=== PATIENT | male | born 1995 | race Caucasian/White ===

== ENCOUNTER 2017-04-08 12:20 | Emergency (ER) | payer BC ==
[2017-04-08 12:39] VITALS: BP 122/76; PULSE 88; RESP 20; TEMP 100.6
[2017-04-08] MEDS ORDERED: IBUPROFEN 600 MG TAB PO STA (12:46)
[2017-04-08] MEDS ORDERED: ACETAMINOPHEN TAB 500 MG TAB PO STA (12:46)
--- NOTE | 2017-04-08 12:49 | ED ---
ENT HPI - General Chief complaint: ENT Stated complaint: Sore Throat/Ear Ache Time Seen by Provider: 04/08/17 12:41 Source: patient, RN notes reviewed Mode of arrival: ambulatory Limitations: no limitations - History of Present Illness Initial comments: 22-year-old male presents to the emergency Department chief complaint of bilateral ear pain and sore throat. Patient states she's been sick for about 4 days. Patient states he has felt hot and cold with this as well. Patient has a significant health concerns. Patient states took Motrin for him. Patient denies any nausea or vomiting or any difficulty breathing. Patient states it's like he is swallowing razor blades. Patient states he was concerned due to his symptoms he thought that he should be evaluated. Patient denies any recent shortness of breath, chest pain, back pain, abdominal pain, nausea vomiting, numbness or tingling, dysuria or hematuria, constipation or diarrhea, headaches or visual changes, or any other current symptoms. - Related Data Previous Rx's Medication Instructions Recorded Azithromycin [Zithromax] 250 mg PO DIRECTED #6 tab 04/08/17 Ibuprofen [Motrin] 600 mg PO Q6HR #20 tab 04/08/17 Allergies Allergy/AdvReac Type Severity Reaction Status Date / Time amoxicillin [From Augmentin] Allergy Vomiting Verified 04/08/17 12:39 clavulanic acid Allergy Vomiting Verified 04/08/17 12:39 [From Augmentin] Review of Systems ROS Statement: Those systems with pertinent positive or pertinent negative responses have been documented in the HPI. ROS Other: All systems not noted in ROS Statement are negative. Past Medical History Past Medical History: No Reported History History of Any Multi-Drug Resistant Organisms: None Reported Past Surgical History: No Surgical Hx Reported Past Psychological History: No Psychological Hx Reported Smoking Status: Current every day smoker Past Alcohol Use History: Occasional Past Drug Use History: None Reported General Exam - General Exam Comments Initial Comments: General exam: Alert, active, comfortable in no apparent distress Head: Normocephalic Eyes: Normal reaction of pupils, equal size, normal range of extraocular motion Ears: normal external ear canals, erythematous tympanic membranes with normal cone of light Nose: clear with pink turbinates Throat: Erythema with no exudates with normal sized tonsils Neck: no masses, no nuchal rigidity Chest: no chest wall deformity Lungs: equal air entry with no crackles or wheeze CVS: S1 and S2 normal with no audible mumurs, regular rhythm Abdomen: no hepatosplenomegaly, normal bowel sounds, no guarding or rigidity Spine: no scoliosis or deformity Skin: no rashes Neurological: No focal deficits, tone is normal in all 4 extremities Limitations: no limitations Course Vital Signs 04/08/17 12:37 Temperature 100.6 F H Pulse Rate 88 Respiratory 20 Rate Blood Pressure 122/76 O2 Sat by Pulse 99 Oximetry Medical Decision Making - Medical Decision Making 22-year-old male presents with history of bilateral otitis media with pharyngitis. This and we will treat the patient with antibiotics. We discussed follow-up return parameters all patient's questions. He stated that he understood and agreed with plan. This and will be discharged home. Disposition Clinical Impression: Bilateral otitis media, Acute pharyngitis Disposition: HOME SELF-CARE Condition: Stable Instructions: Otitis Media (ED) Additional Instructions: Please use medication as discussed. Please follow up with family doctor if symptoms have not improved over the next two days. Please return to the emergency room if your symptoms increase or worsen or for any other concerns. Prescriptions: Azithromycin [Zithromax] 250 mg PO DIRECTED #6 tab Ibuprofen [Motrin] 600 mg PO Q6HR #20 tab Referrals: Kriss Barber MD [STAFF PHYSICIAN] - 1-2 days Time of Disposition: 12:49
== END 2017-04-08 12:54 | disposition home or self-care (01) ==
LOC: EC 12:20
DX: H66.93 Otitis media, unspecified, bilateral (principal); F17.200 Nicotine dependence, unspecified, uncomplicated; Z88.0 Allergy status to penicillin; Z88.8 Allergy status to other drugs, medicaments and biological substances
CPT/HCPCS: 99282

== ENCOUNTER 2018-06-19 14:51 | Emergency (ER) | payer BC ==
[2018-06-19 15:06] VITALS: BP 127/66; PULSE 67; RESP 18; TEMP 98.6
--- NOTE | 2018-06-19 15:16 | ED ---
Abdominal Pain HPI - General Chief Complaint: Abdominal Pain Stated Complaint: Back pain Time Seen by Provider: 06/19/18 15:07 Source: patient, RN notes reviewed Mode of arrival: ambulatory Limitations: no limitations - History of Present Illness Initial Comments: This is a 23-year-old male who presents to the emergency department with chief complaint of right flank pain. Patient states that at 1 PM today he had sudden onset of sharp, stabbing pain in the right flank. States that the pain radiates to his groin and bellybutton. He states that the pain is intermittent , increasing in severity and then going away. He states that he has had kidney stones in the past and that this feels the same. He denies any abdominal pain, nausea or vomiting, diarrhea or constipation, fevers or chills. He states that while providing a urine sample here in the emergency department he did notice a stone in the bottom of the sample cup. - Related Data Home Medications Medication Instructions Recorded Confirmed No Known Home Medications 08/05/17 08/05/17 Allergies Allergy/AdvReac Type Severity Reaction Status Date / Time amoxicillin [From Augmentin] AdvReac Vomiting Verified 08/05/17 14:18 clavulanic acid AdvReac Vomiting Verified 08/05/17 14:18 [From Augmentin] Review of Systems ROS Statement: Those systems with pertinent positive or pertinent negative responses have been documented in the HPI. ROS Other: All systems not noted in ROS Statement are negative. Past Medical History Past Medical History: No Reported History Additional Past Medical History / Comment(s): heart burn History of Any Multi-Drug Resistant Organisms: None Reported Past Surgical History: No Surgical Hx Reported Past Psychological History: Depression Smoking Status: Current every day smoker Past Alcohol Use History: Occasional Past Drug Use History: None Reported General Exam - General Exam Comments Initial Comments: General: Awake and alert, well-developed; in no apparent distress. Patient's urine sample is at bedside, there is a small stone noted at the bottom of the sample cup. HEENT: Head atraumatic, normocephalic. Pupils are equal, round and reactive to light. Extraocular movements intact. Oropharynx moist without erythema or exudate. Neck: Supple. Normal ROM. Cardiovascular: Regular rate and rhythm. No murmurs, rubs or gallops. Chest symmetrical. Respiratory: Lungs clear to auscultation bilaterally. No wheezes, rales or rhonchi. Normal respiratory effort with no use of accessory muscles. Abdomen: Soft, non-tender, non-distended. No rigidity, rebound or guarding. Normal bowel sounds in all 4 quadrants. No CVA tenderness bilaterally. Musculoskeletal: Normal ROM, no tenderness bilateral upper and lower extremities. Ambulating normally. Skin: [place], warm and dry without rashes or lesions. Neurological: Alert and oriented x3. CN II-XII grossly intact. Speech is fluent and answers are appropriate. No focal neuro deficits. Psychiatric: Normal mood and affect. No overt signs of depression or anxiety noted. Limitations: no limitations Course Vital Signs 06/19/18 15:03 Temperature 98.6 F Pulse Rate 67 Respiratory 18 Rate Blood Pressure 127/66 O2 Sat by Pulse 98 Oximetry Medical Decision Making - Medical Decision Making This is a 23-year-old male who presents to the emergency department with chief complaint of right flank pain. Patient reports a history of kidney stones. He reports acute onset of colicky right flank pain. While in the emergency department, a urine sample was collected. A small calculus was noted in the bottom of the urine sample. UA does reveal large blood and >182 red blood cells. X-ray KUB revealed evidence for a recently passed calculus and a new non -obstructing calculus within the right kidney. On reevaluation, patient states that his pain has completely improved. The passed kidney stone in the urine sample cup can account for patient's acute pain, dissipation of pain, hematuria and xr kub findings. Recommend following up with his primary care provider. Educated patient that he may experience pain again if the other kidney stone is passed. Vital signs have been stable and he is in no acute distress. He will be discharged home at this time. He is in agreement and voices understanding. All questions were answered. - Lab Data Lab Results 06/19/18 Range/Units 15:11 Urine Color Yellow Urine Appearance Clear (Clear) Urine pH 7.0 (5.0-8.0) Ur Specific [place] 1.020 (1.001-1.035) Urine Protein Trace H (Negative) Urine Glucose (UA) Negative (Negative) Urine Ketones Negative (Negative) Urine Blood Large H (Negative) Urine Nitrite Negative (Negative) Urine Bilirubin Negative (Negative) Urine Urobilinogen 2.0 (<2.0) mg/dL Ur Leukocyte Esterase Negative (Negative) Urine RBC >182 H (0-5) /hpf Urine WBC 1 (0-5) /hpf Urine Bacteria Rare H (None) /hpf Urine Mucus Rare H (None) /hpf - Radiology Data Radiology results: report reviewed X-ray KUB impression: Suspect passage of prior visualized 1-2 mm calculus on prior CT upper pole level right kidney into ureter given patient's symptoms. Possible new nonobstructing 1-2 mm calculus lower pole level right kidney noted. Disposition Clinical Impression: Nephrolithiasis Disposition: HOME SELF-CARE Condition: Good Instructions: Kidney Stones (ED) Additional Instructions: Please follow up with primary care provider within 1-2 days. Return to emergency department if symptoms should worsen or any concerns arise. Is patient prescribed a controlled substance at d/c from ED?: No Referrals: Harinder Jane MD [Primary Care Provider] - 1-2 days Time of Disposition: 15:56
--- NOTE | 2018-06-19 15:37 | XR ---
EXAMINATION TYPE: XR KUB DATE OF EXAM: 06/19/2018 3:31 PM CLINICAL HISTORY: History of kidney stones with right posterior flank pain TECHNIQUE: Two Upright KUB images of the abdomen are obtained. COMPARISON: CT abdomen and pelvis August 05, 2017. FINDINGS: There is punctate density possible new 1 to 2 mm calculus lower pole level right kidney. No definitive left-sided nephrolithiasis. There is overall nonobstructive bowel gas pattern. There is levoconvex scoliotic curvature positionin g centered in the mid lumbar spine. Spina bifida defect S1 level is present. There is left pelvic phl ebolith redemonstrated. IMPRESSION: Suspect passage of prior visualized 1 to 2 mm calculus on prior CT upper pole level righ t kidney into ureter given patient's symptoms. Possible new nonobstructing 1 to 2 mm calculus lower p ole level right kidney noted.
[2018-06-19 15:50] LABS: Appearance,Urine Clear (Clear); Bacteria,Urine Rare /hpf; Bilirubin,Urine Negative (Negative); Blood,Urine Large (Negative); Color,Urine Yellow; Glucose,Urine (UA) Negative (Negative); Ketones,Urine Negative (Negative); Leukocyte Esterase,Urine Negative (Negative); Mucus,Urine Rare /hpf; Nitrite,Urine Negative (Negative); Protein,Urine Trace (Negative); RBC,Urine >182 /hpf (0-5); WBC,Urine 1 /hpf (0-5)
== END 2018-06-19 16:02 | disposition home or self-care (01) ==
LOC: EC 14:51
DX: N20.0 Calculus of kidney (principal); F17.200 Nicotine dependence, unspecified, uncomplicated; Z88.0 Allergy status to penicillin
CPT/HCPCS: 74018; 81001; 99284

== ENCOUNTER 2018-07-07 13:22 | Emergency (ER) | payer BC ==
[2018-07-07 13:37] VITALS: RESP 18; TEMP 98.2
[2018-07-07 15:19] LABS: Basophils % (A) 1 %; Eosinophils # (A) 0.1 k/uL (0-0.7); Eosinophils % (A) 2 %; HCT 44.5 % (39.0-53.0); HGB 14.9 gm/dL (13.0-17.5); Lymphocytes # (A) 2.1 k/uL (1.0-4.8); Lymphocytes % (A) 36 %; MCH 29.6 pg (25.0-35.0); MCHC 33.5 g/dL (31.0-37.0); MCV 88.2 fL (80.0-100.0); Mean Platelet Volume 7.2; Monocytes # (A) 0.3 k/uL (0-1.0); Monocytes % (A) 6 %; Neutrophils # (A) 3.2 k/uL (1.3-7.7); Neutrophils % (A) 55 %; Platelet Count 232 k/uL (150-450); RBC 5.04 m/uL (4.30-5.90); RDW 12.5 % (11.5-15.5); WBC 5.8 k/uL (3.8-10.6)
[2018-07-07 15:29] LABS: Appearance,Urine Clear (Clear); Bilirubin,Urine Negative (Negative); Blood,Urine Negative (Negative); Color,Urine Yellow; Glucose,Urine (UA) Negative (Negative); Ketones,Urine Negative (Negative); Leukocyte Esterase,Urine Small (Negative); Mucus,Urine Rare /hpf; Nitrite,Urine Negative (Negative); PH, Urine 7.5 (5.0-8.0); Protein,Urine Negative (Negative); RBC,Urine 1 /hpf (0-5); Specific Gravity,Urine 1.018 (1.001-1.035); Urobilinogen,Urine <2.0 mg/dL (<2.0); WBC,Urine 1 /hpf (0-5)
[2018-07-07 15:36] LABS: ALT 29 U/L (21-72); AST 22 U/L (17-59); Albumin 4.8 g/dL (3.5-5.0); Alkaline Phosphatase 52 U/L (38-126); Amylase 56 U/L (30-110); Anion Gap 10 mmol/L; Blood Urea Nitrogen 12 mg/dL (9-20); Calcium 9.9 mg/dL (8.4-10.2); Carbon Dioxide 27 mmol/L (22-30); Chloride 106 mmol/L (98-107); Glucose 91 mg/dL (74-99); Lipase 77 U/L (23-300); Potassium 4.2 mmol/L (3.5-5.1); Sodium 143 mmol/L (137-145); Total Bilirubin 0.6 mg/dL (0.2-1.3)
--- NOTE | 2018-07-07 16:10 | XR ---
EXAMINATION TYPE: XR KUB DATE OF EXAM: 07/07/2018 3:55 PM CLINICAL HISTORY: Right-sided abdominal pain with history of nephrolithiasis. TECHNIQUE: Single supine KUB image of the abdomen is obtained. COMPARISON: 06/19/2018. FINDINGS: Scattered gas is seen in non-distended small bowel loops. Gas and fecal material is seen in non-distended colon. There is no visceromegaly, pneumoperitoneum, or abnormal calcification apprecia judith. The lung bases are clear and the osseous structures are intact. IMPRESSION: The previously seen 1 to 2 mm right lower pole renal calculus is not appreciated on today 's examination and may have passed in the interim.
[2018-07-07] MEDS ORDERED: Acetaminophen-Codeine 300-30mg TAB PO STA (18:02)
[2018-07-07] MEDS ORDERED: KETOROLAC 60 MG/2 ML VIAL IM STA (18:02)
[2018-07-07] MEDS ORDERED: ACET/COD 300 MG/30 MG STARTER PACK 6 TAB BTL PO STA (18:02)
[2018-07-07] MEDS ORDERED: TAMSULOSIN 0.4 MG CAP.ER.24H PO STA (18:02)
--- NOTE | 2018-07-07 18:05 | ED ---
General Adult HPI - General Chief complaint: Abdominal Pain Stated complaint: Kidney stones Time Seen by Provider: 07/07/18 17:42 Source: patient, RN notes reviewed, old records reviewed Mode of arrival: ambulatory Limitations: no limitations - History of Present Illness Initial comments: This is a 23-year-old male the ER for evasive Doppler pain, right-sided flank pain and groin pain radiating to groin. No fevers no cough or congestion. No nausea vomiting. No travel history no sick contacts. No modifying factors for pain. Patient states he woke with some pain in his right side had some blood in his urine and has persisted. Patient states he does have positive history of kidney stones MD Complaint: Right flank pain -: hour(s) (6) Location: abdomen, right Radiation: abdomen, other (Groin) Severity scale (1-10): 7 Quality: sharp Consistency: intermittent, now resolved Improves with: none Worsens with: none Associated Symptoms: denies other symptoms Treatments Prior to Arrival: none - Related Data Home Medications Medication Instructions Recorded Confirmed Citalopram Hydrobromide [CeleXA] 20 mg PO HS 07/07/18 07/07/18 Previous Rx's Medication Instructions Recorded Naproxen [Naprosyn] 500 mg PO Q12HR PRN #30 tab 07/07/18 Tamsulosin [Flomax] 0.4 mg PO DAILY #7 cap 07/07/18 Allergies Allergy/AdvReac Type Severity Reaction Status Date / Time amoxicillin [From Augmentin] AdvReac Vomiting Verified 07/07/18 17:23 clavulanic acid AdvReac Vomiting Verified 07/07/18 17:23 [From Augmentin] Review of Systems ROS Statement: Those systems with pertinent positive or pertinent negative responses have been documented in the HPI. ROS Other: All systems not noted in ROS Statement are negative. Past Medical History Past Medical History: No Reported History Additional Past Medical History / Comment(s): heart burn History of Any Multi-Drug Resistant Organisms: None Reported Past Surgical History: No Surgical Hx Reported Past Psychological History: Depression Smoking Status: Current every day smoker Past Alcohol Use History: None Reported Past Drug Use History: None Reported General Exam Limitations: no limitations General appearance: alert, in no apparent distress Head exam: Present: atraumatic, normocephalic, normal inspection Eye exam: Present: normal appearance, PERRL, EOMI. Absent: scleral icterus, conjunctival injection, periorbital swelling ENT exam: Present: normal exam, mucous membranes moist Neck exam: Present: normal inspection. Absent: tenderness, meningismus, lymphadenopathy Respiratory exam: Present: normal lung sounds bilaterally. Absent: respiratory distress, wheezes, rales, rhonchi, stridor Cardiovascular Exam: Present: regular rate, normal rhythm, normal heart sounds. Absent: systolic murmur, diastolic murmur, rubs, gallop, clicks GI/Abdominal exam: Present: soft, normal bowel sounds. Absent: distended, tenderness, guarding, rebound, rigid Extremities exam: Present: normal inspection, full ROM, normal capillary refill. Absent: tenderness, pedal edema, joint swelling, calf tenderness Back exam: Present: normal inspection Neurological exam: Present: alert, oriented X3, CN II-XII intact Psychiatric exam: Present: normal affect, normal mood Skin exam: Present: warm, dry, intact, normal color. Absent: rash Course Vital Signs 07/07/18 13:34 Temperature 98.2 F Pulse Rate 63 Respiratory 18 Rate Blood Pressure 128/74 O2 Sat by Pulse 100 Oximetry - Reevaluation(s) Reevaluation #1: 07/07/18 18:04 Medical records thoroughly reviewed Patient has adequate pain control currently no distress Medical Decision Making - Medical Decision Making 23 male coming in with right-sided flank pain hematuria, passing right-sided kidney stone. Patient given symptomatic management control. Patient can be discharged home - Lab Data Result diagrams: 07/07/18 15:06 07/07/18 15:06 Lab Results 07/07/18 07/07/18 07/07/18 Range/Units 15:06 15:06 15:06 WBC 5.8 (3.8-10.6) k/uL RBC 5.04 (4.30-5.90) m/uL Hgb 14.9 (13.0-17.5) gm/dL Hct 44.5 (39.0-53.0) % MCV 88.2 (80.0-100.0) fL MCH 29.6 (25.0-35.0) pg MCHC 33.5 (31.0-37.0) g/dL RDW 12.5 (11.5-15.5) % Plt Count 232 (150-450) k/uL Neutrophils % 55 % Lymphocytes % 36 % Monocytes % 6 % Eosinophils % 2 % Basophils % 1 % Neutrophils # 3.2 (1.3-7.7) k/uL Lymphocytes # 2.1 (1.0-4.8) k/uL Monocytes # 0.3 (0-1.0) k/uL Eosinophils # 0.1 (0-0.7) k/uL Basophils # 0.0 (0-0.2) k/uL Sodium 143 (137-145) mmol/L Potassium 4.2 (3.5-5.1) mmol/L Chloride 106 (98-107) mmol/L Carbon Dioxide 27 (22-30) mmol/L Anion Gap 10 mmol/L BUN 12 (9-20) mg/dL Creatinine 0.71 (0.66-1.25) mg/dL Est GFR (CKD-EPI)AfAm >90 (>60 ml/min/1.73 sqM) Est GFR (CKD-EPI)NonAf >90 (>60 ml/min/1.73 sqM) Glucose 91 (74-99) mg/dL Calcium 9.9 (8.4-10.2) mg/dL Total Bilirubin 0.6 (0.2-1.3) mg/dL AST 22 (17-59) U/L ALT 29 (21-72) U/L Alkaline Phosphatase 52 (38-126) U/L Total Protein 8.0 (6.3-8.2) g/dL Albumin 4.8 (3.5-5.0) g/dL Amylase 56 (30-110) U/L Lipase 77 (23-300) U/L Urine Color Yellow Urine Appearance Clear (Clear) Urine pH 7.5 (5.0-8.0) Ur Specific [place] 1.018 (1.001-1.035) Urine Protein Negative (Negative) Urine Glucose (UA) Negative (Negative) Urine Ketones Negative (Negative) Urine Blood Negative (Negative) Urine Nitrite Negative (Negative) Urine Bilirubin Negative (Negative) Urine Urobilinogen <2.0 (<2.0) mg/dL Ur Leukocyte Esterase Small H (Negative) Urine RBC 1 (0-5) /hpf Urine WBC 1 (0-5) /hpf Urine Mucus Rare H (None) /hpf - Radiology Data Radiology results: report reviewed (X-ray KUB shows passing of right-sided kidney stone), image reviewed Disposition Clinical Impression: Abdominal pain, Nephrolithiasis, Right kidney stone Disposition: HOME SELF-CARE Instructions: Kidney Stones (ED) Prescriptions: Naproxen [Naprosyn] 500 mg PO Q12HR PRN #30 tab PRN Reason: Pain Tamsulosin [Flomax] 0.4 mg PO DAILY #7 cap Is patient prescribed a controlled substance at d/c from ED?: No Referrals: Harinder Jane MD [Primary Care Provider] - 1-2 days
[2018-07-07 18:06] VITALS: BP 141/66; PULSE 57
== END 2018-07-07 18:28 | disposition home or self-care (01) ==
LOC: EC 13:22
DX: N20.0 Calculus of kidney (principal); F32.9 Major depressive disorder, single episode, unspecified; F17.200 Nicotine dependence, unspecified, uncomplicated; Z88.0 Allergy status to penicillin; Z88.1 Allergy status to other antibiotic agents; Z79.899 Other long term (current) drug therapy
CPT/HCPCS: 99284; 96372; 36415; 80053; 82150; 83690; 85025; 81001; 74018; J1885

== ENCOUNTER 2019-10-28 12:07 | Day surgery (SDC) | payer OTHER ==
[2019-10-27 11:27] VITALS: BMI 32.9
--- NOTE | 2019-10-28 08:41 | P.GSHP ---
History of Present Illness H&P Date: 10/28/19 CHIEF COMPLAINT: GERD HISTORY OF PRESENT ILLNESS: The patient is a 24-year-old male who presents reports gastroesophageal reflux disease. Upper endoscopy was offered for further evaluation and management. PAST MEDICAL HISTORY: Please see list. PAST SURGICAL HISTORY: Please see list. MEDICATIONS: Please see list. ALLERGIES: Please see list. SOCIAL HISTORY: No illicit drug use FAMILY HISTORY: No reports of Crohn disease or ulcerative colitis. REVIEW OF ORGAN SYSTEMS: CONSTITUTIONAL: No reports of fevers or chills. GI: Denies any blood in stools or constipation. PHYSICAL EXAM: VITAL SIGNS: Stable GENERAL: Well-developed and pleasant in no acute distress. HEENT: No scleral icterus. Extraocular movements grossly intact. Moist buccal mucosa. NECK: Supple without lymphadenopathy. CHEST: Unlabored respirations. Equal bilateral excursions. CARDIOVASCULAR: Regular rate and rhythm. Distal 2+ pulses. ABDOMEN: Soft, nondistended. MUSCULOSKELETAL: No clubbing, cyanosis, or edema. ASSESSMENT: 1. Gastroesophageal reflux disease PLAN: 1. Recommend proceeding with an upper endoscopy Past Medical History Past Medical History: GERD/Reflux, Sleep Apnea/CPAP/BIPAP Additional Past Medical History / Comment(s): no cpap used, hiatal hernia, hx kdiney stones History of Any Multi-Drug Resistant Organisms: None Reported Past Surgical History: Cholecystectomy Past Anesthesia/Blood Transfusion Reactions: Previous Problems w/ Anesthesia, Family History of Problems w/ Anesthesia Additional Past Anesthesia/Blood Transfusion Reaction / Comment(s): "lips turned blue and I stopped breathing" in recovery room after gallbladder surgery.05/2019 at [facility].mother- hard to wake up Smoking Status: Current every day smoker - Past Family History Mother Family Medical History: No Reported History Medications and Allergies Home Medications Medication Instructions Recorded Confirmed Type Pantoprazole Sodium [Protonix] 40 mg PO BID 10/27/19 10/27/19 History Pre Work Out Supplement 1 applicate PO DIRECTED 10/27/19 10/27/19 History Allergies Allergy/AdvReac Type Severity Reaction Status Date / Time amoxicillin [From Augmentin] AdvReac Vomiting Verified 10/27/19 11:19 clavulanic acid AdvReac Vomiting Verified 10/27/19 11:19 [From Augmentin]
[2019-10-28] MEDS ORDERED: LIDOCAINE 1% (10MG/ML) FOR IV START INTRADERMA ONE (12:36)
[2019-10-28] MEDS ORDERED: LACTATED RINGERS 1,000 ML IV ONE (12:36)
[2019-10-28 12:39] VITALS: TEMP 98.1
[2019-10-28] MEDS ORDERED: LIDOCAINE 1% INJ 10MG/ML (20 ML MDV) ONE (13:43)
[2019-10-28] MEDS ORDERED: PROPOFOL 10 MG/ML 20 ML VIAL IV ONE (13:43)
--- NOTE | 2019-10-28 14:08 | P.PCN ---
Date of Procedure: 10/28/19 Description of Procedure: PREOPERATIVE DIAGNOSIS: Gastroesophageal reflux disease. POSTOPERATIVE DIAGNOSIS: Gastritis. Gastroesophageal reflux disease. OPERATION: Esophagogastroduodenoscopy with biopsies along antrum. SURGEON: Laxmi Mullins MD ANESTHESIA: MAC. INDICATIONS: The patient is a 24-year-old male who presents with a history of reflux disease. Benefits and risks of the procedure were described. Informed consent was obtained. DESCRIPTION: The patient was brought into the endoscopy suite and laid in the left lateral decubitus position. An Olympus gastroscope was passed along the posterior oropharynx down to the distal esophagus where the squamocolumnar junction was encountered at 40 cm from the incisors. The stomach was entered and no bile reflux was found. Additional findings are listed below. Biopsies with cold forceps were obtained of the antrum. The first through third portion of the duodenum was examined and unremarkable. Retroflexion of the scope confirmed Hill grade 3 lower esophageal valve. The squamocolumnar junction demonstrated LA grade B erosive esophagitis. The stomach was desufflated. The patient tolerated the procedure well. FINDINGS: Squamocolumnar junction 40 cm from the incisors. Diaphragmatic hiatus at 40 cm. Hill grade 3 lower esophageal valve. LA grade B erosive esophagitis. No active duodenitis. Chronic gastritis RECOMMENDATIONS: Upper endoscopy as needed. Plan - Discharge Summary New Discharge Prescriptions: No Action Pantoprazole Sodium [Protonix] 40 mg PO BID Pre Work Out Supplement 1 applicate PO DIRECTED Discharge Medication List Pantoprazole Sodium [Protonix] 40 mg PO BID 10/27/19 [History] Pre Work Out Supplement 1 applicate PO DIRECTED 10/27/19 [History] Follow up Appointment(s)/Referral(s): Laxmi Mullins MD [STAFF PHYSICIAN] - 11/10/19 Patient Instructions/Handouts: Gastritis (DC) Discharge Disposition: HOME SELF-CARE
[2019-10-28 14:13] VITALS: RESP 16
[2019-10-28 14:27] VITALS: BP 113/74; PULSE 63
== END 2019-10-28 14:46 | disposition home or self-care (01) ==
LOC: ORWHC2ENDO 12:07
PROVIDERS: ATTEND Surgery Plastic and Reconstructive Surgery
DX: K21.0 Gastro-esophageal reflux disease with esophagitis (principal); K31.9 Disease of stomach and duodenum, unspecified; G47.33 Obstructive sleep apnea (adult) (pediatric); F17.200 Nicotine dependence, unspecified, uncomplicated; Z88.0 Allergy status to penicillin; Z87.19 Personal history of other diseases of the digestive system; Z87.442 Personal history of urinary calculi; Z90.49 Acquired absence of other specified parts of digestive tract; Z91.89 Other specified personal risk factors, not elsewhere classified; Z79.899 Other long term (current) drug therapy; Z84.89 Family history of other specified conditions
CPT/HCPCS: 43239; J2001; J2704; 88305

== ENCOUNTER → 2019-11-05 | Outpatient (CLI) | payer OTHER ==
--- NOTE | 2019-11-05 08:59 | FL ---
EXAMINATION TYPE: FL barium swallow DATE OF EXAM: 11/05/2019 CLINICAL HISTORY: Known hiatal hernia with recent endoscopy and gastroesophageal reflux. TECHNIQUE: A double contrast esophagram is performed utilizing air and barium. A total of 1 minute and 14 seconds of fluoroscopic time was utilized during procedure. 45 fluoroscopic images were saved. COMPARISON: None FINDINGS: The esophagus shows normal motility and emptying into the stomach. There is a small hiatal hernia seen. There is retained contrast in the small hiatal hernia resulting in moderate gastroesopha geal reflux on supine imaging. No significant gastroesophageal reflux on upright imaging. No strictur e noted. IMPRESSION: Small hiatal hernia resulting in moderate gastroesophageal reflux.
== END | disposition home or self-care (01) ==
LOC: RADUSWWP 07:59
PROVIDERS: ATTEND Surgery Plastic and Reconstructive Surgery
DX: K21.9 Gastro-esophageal reflux disease without esophagitis (principal); K44.9 Diaphragmatic hernia without obstruction or gangrene; Z88.0 Allergy status to penicillin
CPT/HCPCS: 74220

== ENCOUNTER 2020-05-06 05:47 | Observation (INO) | payer OTHER ==
--- NOTE | 2020-05-05 19:40 | P.GSHP ---
History of Present Illness H&P Date: 05/06/20 CHIEF COMPLAINT: Paraesophageal hiatal hernia with gastroesophageal reflux disease. HISTORY OF PRESENT ILLNESS: The patient is a 25-year-old male who presents with paraesophageal hiatal hernia. He has completed an esophageal manometry including upper endoscopy workup. Now he presents for surgical intervention. PAST MEDICAL HISTORY: Please see list. PAST SURGICAL HISTORY: Please see list. MEDICATIONS: Please see list. ALLERGIES: Please see list. SOCIAL HISTORY: No illicit drug use FAMILY HISTORY: No reports of Crohn disease or ulcerative colitis. REVIEW OF ORGAN SYSTEMS: CONSTITUTIONAL: No reports of fevers or chills. GI: Denies any blood in stools or constipation. PHYSICAL EXAM: VITAL SIGNS: Stable GENERAL: Well-developed pleasant and in no acute distress. HEENT: No scleral icterus. Extraocular movements grossly intact. Moist buccal mucosa. NECK: Supple without lymphadenopathy. CHEST: Unlabored respirations. Equal bilateral excursions. CARDIOVASCULAR: Regular rate and rhythm. Distal 2+ pulses. ABDOMEN: Soft, nondistended. No peritoneal signs. MUSCULOSKELETAL: No clubbing, cyanosis, or edema. SKIN: Well-perfused. Good skin turgor. MANOMETRY: Shows no evidence of achalasia or scleroderma. ASSESSMENT: 1. Diaphragmatic paraesophageal hiatal hernia with severe gastroesophageal reflux disease. PLAN: 1. Recommend proceeding with a robotic paraesophageal hiatal hernia with possible mesh. 2. Benefits and risks of surgical intervention was discussed including possibility of open technique. 3. Inpatient hospitalization recommended of 2 nights 4. DVT prophylaxis. 5. Antibiotic prophylaxis. Past Medical History Past Medical History: GERD/Reflux, Sleep Apnea/CPAP/BIPAP Additional Past Medical History / Comment(s): no cpap used, hiatal hernia, hx kdiney stones History of Any Multi-Drug Resistant Organisms: None Reported Past Surgical History: Cholecystectomy Past Anesthesia/Blood Transfusion Reactions: Previous Problems w/ Anesthesia, Family History of Problems w/ Anesthesia Additional Past Anesthesia/Blood Transfusion Reaction / Comment(s): "lips turned blue and I stopped breathing" in recovery room after gallbladder surgery.05/2019 at [facility]Went home same day,no respiratory intervention needed,I just had a hard time waking up." 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
[~2020-05-06 05:47] MED LIST: ACETAMINOPHEN TAB 500 MG TAB PO PRN; DEXAMETHASONE SOD PHOSPHATE 10 MG/ML 1 ML VIAL IV ONE; GABAPENTIN 300 MG CAP PO STA; HYDROmorphone 0.5 MG/0.5 ML SYRINGE IVP PRN; LIDOCAINE 1% (10MG/ML) FOR IV START INTRADERMA PRN; MIDAZOLAM 2 MG/2 ML VIAL IV PRN; ONDANSETRON 4 MG/2 ML VIAL IVP ONE
[2020-05-06] MEDS ORDERED: HEPARIN SODIUM,PORCINE 5,000 UNIT/ML 1 ML VIAL SQ ONE (06:00)
[2020-05-06] MEDS ORDERED: ACETAMINOPHEN TAB 500 MG TAB ONE (06:26)
[2020-05-06] MEDS ORDERED: ONDANSETRON 4 MG/2 ML VIAL ONE (06:27)
[2020-05-06] MEDS ORDERED: HEPARIN SODIUM,PORCINE 5,000 UNIT/ML 1 ML VIAL ONE (06:27)
[2020-05-06] MEDS: LACTATED RINGERS 1,000 ML IV SCH (06:42)
[2020-05-06] MEDS ORDERED: PANTOPRAZOLE 40 MG/10 ML VIAL IV ONE (07:00)
[2020-05-06] MEDS ORDERED: CHLORHEXIDINE GLUCONATE 15 ML CUP MUCOUS MEM ONE (07:00)
[2020-05-06 07:07] LABS: Basophils % (A) 0 %; Eosinophils # (A) 0.2 k/uL (0-0.7); Eosinophils % (A) 2 %; HCT 42.5 % (39.0-53.0); Lymphocytes # (A) 3.4 k/uL (1.0-4.8); Lymphocytes % (A) 38 %; MCH 29.6 pg (25.0-35.0); MCV 89.8 fL (80.0-100.0); Mean Platelet Volume 7.1; Monocytes # (A) 0.4 k/uL (0-1.0); Monocytes % (A) 4 %; Neutrophils # (A) 4.8 k/uL (1.3-7.7); Neutrophils % (A) 54 %; Platelet Count 248 k/uL (150-450); RBC 4.73 m/uL (4.30-5.90); RDW 12.6 % (11.5-15.5); WBC 8.9 k/uL (3.8-10.6)
[2020-05-06 07:17] LABS: ALT 38 U/L (4-49); AST 27 U/L (17-59); African American GFR (CKD) >90 (>60 ml/min/1.73 sqM); Albumin 4.5 g/dL (3.5-5.0); Alkaline Phosphatase 71 U/L (38-126); Anion Gap 10 mmol/L; Blood Urea Nitrogen 12 mg/dL (9-20); Calcium 9.5 mg/dL (8.4-10.2); Carbon Dioxide 24 mmol/L (22-30); Chloride 106 mmol/L (98-107); Glucose 87 mg/dL (74-99); Non-African American GFR(CKD) >90 (>60 ml/min/1.73 sqM); Sodium 140 mmol/L (137-145); Total Bilirubin 0.4 mg/dL (0.2-1.3); Total Protein 7.2 g/dL (6.3-8.2)
[2020-05-06] MEDS ORDERED: MIDAZOLAM 2 MG/2 ML VIAL ONE (07:28)
[2020-05-06] MEDS ORDERED: LIDOCAINE 1% INJ 10MG/ML (20 ML MDV) ONE (07:28)
[2020-05-06] MEDS ORDERED: KETAMINE 10 MG/ML 20 ML VIAL ONE (07:28)
[2020-05-06] MEDS ORDERED: NEOSTIGMINE 1 MG/ML 10 ML VIAL ONE (07:28)
[2020-05-06] MEDS ORDERED: GLYCOPYRROLATE 0.2 MG/ML 2 ML VIAL ONE (07:28)
[2020-05-06] MEDS ORDERED: ROCURONIUM BROMIDE 10 MG/ML 5 ML VIAL IV ONE (07:28)
[2020-05-06] MEDS ORDERED: PROPOFOL 10 MG/ML 20 ML VIAL IV ONE (07:28)
[2020-05-06] MEDS ORDERED: fentaNYL (PF) 50 MCG/ML 2 ML AMP ONE (07:28)
[2020-05-06] MEDS ORDERED: SUCCINYLCHOLINE CHLORIDE 100 MG/5 ML SYR IV ONE (07:28)
[2020-05-06] MEDS ORDERED: METOPROLOL TARTRATE 5 MG/5 ML VIAL IVP ONE (07:28)
[2020-05-06] MEDS ORDERED: HYDROmorphone (PF) 1 MG/ML ONE (07:28)
[2020-05-06] MEDS ORDERED: LIDOCAINE 1%-EPI 1:100,000 20 ML VIAL SQ ONE (08:24)
[2020-05-06] MEDS ORDERED: LACTATED RINGERS 1,000 ML IV ONE (09:14)
[2020-05-06] MEDS ORDERED: HYDROmorphone 1 MG/ML 1 ML SYRINGE IVP PRN (09:55)
[2020-05-06] MEDS ORDERED: NALOXONE 0.4 MG/ML 1 ML VIAL IV PRN (09:55)
[2020-05-06] MEDS ORDERED: diphenhydrAMINE 50 MG/ML 1 ML VIAL IVP PRN (09:55)
--- NOTE | 2020-05-06 10:06 | P.OP ---
Date of Procedure: 05/06/20 Description of Procedure: SURGEON: MARKIE BOWIE MD PREOPERATIVE DIAGNOSES: 1. Symptomatic paraesophageal diaphragmatic hiatal hernia. 2. Gastroesophageal reflux disease. 3. Obesity due to excess calories, BMI 33.4 POSTOPERATIVE DIAGNOSES: 1. Symptomatic paraesophageal diaphragmatic hiatal hernia. 2. Gastroesophageal reflux disease. 3. Obesity due to excess calories, BMI 33.4 OPERATION: 1. Robotic-assisted da Edlgado Xi laparoscopic repair of incarcerated paraesophageal hiatal hernia, 5 x 4 cm, with [place] Biopatch A 8 x 8 cm. 2. Intraoperative esophagogastroduodenoscopy ANESTHESIA: General with local anesthetic. ESTIMATED BLOOD LOSS: 5 mL SPECIMENS REMOVED: None COMPLICATIONS: None. Condition: stable Disposition: floor FINDINGS: 1. Midline incarcerated paraesophageal hiatal hernia 5 x 4 cm 2. Intraoperative upper endoscopy confirms complete closure of hiatal hernia from Hill grade 3 to Hill grade 1 3. Intraesophageal length 2-cm 4. No gastric ulcers 5. No duodenal ulcers INDICATIONS: The patient is a 25-year-old male who presents with epigastric abdominal pain, gastroesophageal reflux disease poorly controlled despite medications, and a symptomatic diaphragmatic hiatal hernia. Preoperative workup including upper endoscopy demonstrated a sliding hiatal hernia. He completed an esophageal manometry. Given the severity of symptoms, he had elected for surgical intervention. Benefits and risks including bleeding, infection, recurrence, dysphagia, injury to the lung, need for further surgery was described at length. Informed consent was obtained. DESCRIPTION: The patient was brought into the operating room and placed in supine position. Preoperatively she had received heparin subcutaneously for DVT prophylaxis. After general induction, the abdomen was prepped and draped in standard sterile fashion. The patient had previously voided prior to coming to the operating room. Ioban draping was placed along the abdomen. A timeout protocol was confirmed with the surgical team, for which the patient's name, procedure to be performed including DVT prophylaxis with bilateral SCDs, and preoperative antibiotics were also confirmed. A robotic da Delgado Xi system was prepped and primed. At 12 cm from the xiphoid to just below the umbilicus, proposed port sites were marked with indelible marker along the left axillary line, left mid-clavicular line with each ports were marked 10 cm from each other. A 5 mm 0 degrees laparoscopic trocar entry was performed along the left upper quadrant. The abdomen was insufflated to 15 mmHg pressure was tolerated well. Diagnostic laparoscopy demonstrated no injury to bowel, viscera, or mesentery. No injury had occurred to the small bowel or viscera. The liver was smooth, with sharp edges consistent with two-week high-protein low-carb diet. Previous trochar sites from cholecystectomy were used. Next, one 8 mm robotic port was placed along the right upper abdomen. An 8-mm port was were placed along the right lateral lateral abdominal wall. The camera 8-mm port was maintained along the epigastrium. Another 12 mm port was placed along the left upper abdominal wall after exchanging the 5 mm port. Please note that the ports were placed at least 20 cm away from the target anatomy. Care was taken to check that each robotic arm were safely away from collision with the bed or the patient. At the epigastrium, a medium sized Earl liver retractor was placed under direct visualization with the [facility] placed under the right shoulder of the patient. All robotic arms were used. The patient was repositioned in reverse Trendelenburg position at 21-degrees after lowering the bed. The robot was docked above the right side of the patient. Using a grasper for arm 3, a grasper for arm 1, including vessel sealer for arm 2, the robotic system was docked and primed as described. Instruments were interchanged by the physical therapy assistant instructor. I had sat at the console. The gastrohepatic ligament was cleaved using a vessel sealer. Next, the phrenoesophageal ligament was mobilized and the distal esophagus was mobilized circumferentially. The left and right crura was identified. Circumferentially, the hernia sac was excised and brought into the peritoneal cavity. Care was taken to avoid any gastrotomy. The measured hiatal defect was consistent with 5 cm axial length and 4 cm in width. After dissection, the distal esophagus of 2 cm was brought into the abdominal cavity. Once the hiatus and crura was dissected, 2-0 VLOC suture was placed to reapproximate the diaphragmatic hiatus posteriorly. To buttress the repair, a [place] Biopatch A was prepared along the back table and cut in half of a knight-hole fashion as to reinforce the repair as an underlay. The mesh was placed along the crural repair and tagged using horizontal mattress sutures using 2-0 VLOC. I went to the head of the bed to perform intraoperative esophagogastroduodenoscopy. An Olympus gastroscope was passed through posterior oropharynx. The scope was passed to the fourth portion of the duodenum. No evidence of peptic or duodenal ulcers were identified. Retained foodstuff was found within the stomach and suctioned. Retroflexion of the scope confirmed a Hill grade 1 lower esophageal valve. The stomach had been desufflated. No evidence of leaks were found of the esophagus or stomach. The GI tract with desufflated This concluded the endoscopic portion of the case. The robot was undocked from the patient. I re-scrubbed into the case. All instruments and pneumoperitoneum and specimens were evacuated from the abdominal cavity. Incisions were reapproximated using 4-0 Monocryl in an in terrupted subcuticular fashion. Liquid glue was applied to the skin. Local anesthetic was infiltrated in all wounds for postop analgesia. Multiple intra-abdominal films were obtained. At the end of the procedure, needle, sponge, and instrument count was verified correct by the bicycle technician. The patient had tolerated the procedure well and was taken to the postanesthesia unit in stable condition.
[2020-05-06 10:14] VITALS: RESP 16
[2020-05-06] MEDS: SIMETHICONE 40 MG/0.6 ML DROPS 2,000 MG/30 ML BOTTLE PO SCH ×3 (12:04→23:04)
[2020-05-06] MEDS: METOCLOPRAMIDE 5 MG/ML 2 ML VIAL IVP SCH ×3 (12:04→23:04)
[2020-05-06] MEDS: ONDANSETRON 4 MG/2 ML VIAL IVP SCH ×3 (12:04→23:04)
[2020-05-06] MEDS: HYOSCYAMINE ORAL DROPS 1.875 MG/15 ML BOTTLE PO SCH ×3 (12:04→23:03)
[2020-05-06] MEDS: KETOROLAC 30 MG/ML 1 ML VIAL IVP SCH ×3 (12:04→23:03)
[2020-05-06] MEDS: D5-0.45% NACL WITH KCL 20MEQ/L 1,000 ML IV SCH ×2 (12:05→19:30)
[2020-05-06] MEDS ORDERED: ACETAMINOPHEN IV (For NPO) 1,000 MG in EMPTY BAG 1 BAG IVPB ONE (12:40)
--- NOTE | 2020-05-06 13:15 | FL ---
EXAMINATION TYPE: FL esophagus cervic/pharynx DATE OF EXAM: 05/06/2020 HISTORY: Post Gabriel fundoplication COMPARISON: NONE TECHNIQUE: A single contrast esophagram is performed. 16 seconds of fluoroscopy and 5 images submitt ed.. FINDINGS: There is no evidence of extravasation or obstruction. Tiny amount of free intraperitoneal a ir likely postsurgical not excluded. IMPRESSION: No evidence of obstruction or extravasation
[2020-05-06 14:36] VITALS: BMI 33.4
--- NOTE | 2020-05-06 20:27 | P.PN ---
Subjective Progress Note Date: 05/06/20 CHIEF COMPLAINT: Gastroesophageal reflux disease HISTORY OF PRESENT ILLNESS: The patient is a 25-year-old male status post hiatal hernia repair. He is postoperative day 0. He completed his esophagram. No nausea or vomiting. He is resting comfortably. His family is at bedside. No reports of atypical chest pain. Incisional pain is controlled. ROS: No reports of nausea and vomiting. No bowel movements. No fevers or chills. No new chest pain. No productive sputum PHYSICAL EXAM: VITAL SIGNS: Reviewed CONSTITUTIONAL: Well developed and in no acute distress. EYES: Conjuctivae without sclera icterus. Extraocular movements grossly intact. HEAD, EARS, NOSE, THROAT: Moist buccal mucosa. Head is atraumatic, normocephalic. Hears conversational speech. No nasal drainage. NECK: Supple. No thyroidomegaly. RESPIRATORY: Non-labored respirations and equal bilateral excursions. CARDIOVASCULAR: Palpable 2+ radial pulses. ABDOMEN: Incisions clean dry and intact. Soft. No peritonitis. MUSCULOSKELETAL: No gross deformity of the lower extremities noted. No clubbing. No cyanosis. SKIN: Good skin turgor. Well perfused. NEUROLOGIC: Cranial nerves II through XII grossly intact. No focal or lateralizing signs. PSYCH: Appropriate affect. Alert and oriented to person, place and time. CLINICAL LABS: White blood cell count normal on admission 8.9. STUDIES: Esophagram iundependently reviewed without leak or obstruction. ASSESSMENT: 1. GERD 2. Status post hiatal hernia repair PLAN: 1. Clinically he is stable 2. May start liquid diet. No carbonated beverages or straws. 3. Pain management with tylenol and ibuprofen described 4. May discontinue antacids Objective - Vital Signs Vital signs: Vital Signs Temp 97.6 F 05/06/20 14:53 Pulse 51 L 05/06/20 14:53 Resp 16 05/06/20 19:36 BP 117/66 05/06/20 14:53 Pulse Ox 100 05/06/20 14:53 Intake & Output 05/06/20 05/06/20 05/07/20 06:59 18:59 06:59 Intake Total 300 850 Output Total 10 Balance 300 840 Weight 111.7 kg 111.7 kg Intake: IV 300 850 Output: Estimated Blood Loss 10 Other: Voiding Method Toilet Urinal - Labs CBC & Chem 7: 08/07/20 06:30 05/06/20 06:30 Labs: Abnormal Lab Results - Last 24 Hours (Table) 05/06/20 Range/Units 06:30 Creatinine 0.64 L (0.66-1.25) mg/dL Assessment and Plan (1) Paraesophageal hiatal hernia Current Visit: Yes Status: Acute Code(s): K44.9 - DIAPHRAGMATIC HERNIA WITHOUT OBSTRUCTION OR GANGRENE SNOMED Code(s): 2497167 (2) Obesity (BMI 30.0-34.9) Current Visit: Yes Status: Acute Code(s): E66.9 - OBESITY, UNSPECIFIED SNOMED Code(s): 226030256514092 (3) Gastroesophageal reflux disease with esophagitis Current Visit: No Status: Acute Code(s): K21.0 - GASTRO-ESOPHAGEAL REFLUX DISEASE WITH ESOPHAGITIS SNOMED Code(s): 681722018
--- NOTE | 2020-05-06 20:33 | P.DS ---
Providers Date of admission: 05/06/2020 Expected date of discharge: 05/07/20 Attending physician: Laxmi Mullins Primary care physician: Harinder Jane - Discharge Diagnosis(es) (1) Paraesophageal hiatal hernia Current Visit: Yes Status: Acute (2) Obesity (BMI 30.0-34.9) Current Visit: Yes Status: Acute (3) Gastroesophageal reflux disease with esophagitis Current Visit: No Status: Acute Hospital Course: POSTOPERATIVE DIAGNOSES: 1. Symptomatic paraesophageal diaphragmatic hiatal hernia. 2. Gastroesophageal reflux disease. 3. Obesity due to excess calories, BMI 33.4 COURSE: The patient is a 25-year-old male who presented with gastroesophageal reflux disease poorly controlled despite medications, and a symptomatic diaphragmatic hiatal hernia. Preoperative workup including upper endoscopy demonstrated a sliding hiatal hernia. He completed an esophageal manometry. Given the severity of symptoms, he had elected for surgical intervention. He underwent hiatal hernia repair without sequelae. His esophagram was unremarkable. Prior to discharge, his pain was well controlled. Procedures: OPERATION: 1. Robotic-assisted da Delgado Xi laparoscopic repair of incarcerated paraesophageal hiatal hernia, 5 x 4 cm, with [place] Biopatch A 8 x 8 cm. 2. Intraoperative esophagogastroduodenoscopy ANESTHESIA: General with local anesthetic. ESTIMATED BLOOD LOSS: 5 mL SPECIMENS REMOVED: None COMPLICATIONS: None. Condition: stable Disposition: floor FINDINGS: 1. Midline incarcerated paraesophageal hiatal hernia 5 x 4 cm 2. Intraoperative upper endoscopy confirms complete closure of hiatal hernia from Hill grade 3 to Hill grade 1 3. Intraesophageal length 2-cm 4. No gastric ulcers 5. No duodenal ulcers Patient Condition at Discharge: Stable Plan - Discharge Summary Discharge Rx Participant: No New Discharge Prescriptions: New Ibuprofen [Motrin] 600 mg PO Q8HR PRN #30 tab PRN Reason: Pain Acetaminophen Tab [Tylenol Tab] 1,000 mg PO Q6HR PRN #30 tablet PRN Reason: Pain Discharge Medication List Acetaminophen Tab [Tylenol Tab] 1,000 mg PO Q6HR PRN #30 tablet 05/06/20 [Rx] Ibuprofen [Motrin] 600 mg PO Q8HR PRN #30 tab 05/06/20 [Rx] Follow up Appointment(s)/Referral(s): Laxmi Mullins MD [STAFF PHYSICIAN] - 08/13/20 Patient Instructions/Handouts: Laparoscopic Hiatal Hernia Repair (DC) Activity/Diet/Wound Care/Special Instructions: Liquid diet only. No carbonated beverages. No straws. No lifting over 4 pounds in 4 weeks, Jun 06. January shower. No bath tub soaks for 2 weeks until May 20January take [id number] Tylenol for pain. Do not remove scopolamine patch for 3 days, if present Discharge Disposition: HOME SELF-CARE
[2020-05-06 21:53] VITALS: TEMP 97.7
[2020-05-07] MEDS: LACTATED RINGERS 1,000 ML IV SCH (01:53)
[2020-05-07] MEDS: KETOROLAC 30 MG/ML 1 ML VIAL IVP SCH (06:01)
[2020-05-07] MEDS: ONDANSETRON 4 MG/2 ML VIAL IVP SCH (06:01)
[2020-05-07] MEDS: METOCLOPRAMIDE 5 MG/ML 2 ML VIAL IVP SCH (06:01)
[2020-05-07] MEDS: SIMETHICONE 40 MG/0.6 ML DROPS 2,000 MG/30 ML BOTTLE PO SCH (06:03)
[2020-05-07] MEDS: HYOSCYAMINE ORAL DROPS 1.875 MG/15 ML BOTTLE PO SCH (06:03)
[2020-05-07] MEDS: D5-0.45% NACL WITH KCL 20MEQ/L 1,000 ML IV SCH (06:37)
[2020-05-07 07:26] VITALS: BP 122/66; PULSE 72
[2020-05-07 08:19] LABS: Basophils % (A) 0 %; Eosinophils % (A) 0 %; HGB 12.8 gm/dL (13.0-17.5); Lymphocytes # (A) 2.1 k/uL (1.0-4.8); Lymphocytes % (A) 25 %; MCH 29.2 pg (25.0-35.0); MCHC 31.9 g/dL (31.0-37.0); MCV 91.6 fL (80.0-100.0); Mean Platelet Volume 7.2; Monocytes # (A) 0.4 k/uL (0-1.0); Monocytes % (A) 5 %; Neutrophils # (A) 5.5 k/uL (1.3-7.7); Neutrophils % (A) 68 %; Platelet Count 212 k/uL (150-450); RBC 4.37 m/uL (4.30-5.90); RDW 12.6 % (11.5-15.5); WBC 8.2 k/uL (3.8-10.6)
[2020-05-07 08:44] LABS: African American GFR (CKD) >90 (>60 ml/min/1.73 sqM); Anion Gap 4 mmol/L; Blood Urea Nitrogen 10 mg/dL (9-20); Calcium 8.5 mg/dL (8.4-10.2); Carbon Dioxide 26 mmol/L (22-30); Chloride 107 mmol/L (98-107); Non-African American GFR(CKD) >90 (>60 ml/min/1.73 sqM); Potassium 3.8 mmol/L (3.5-5.1); Sodium 137 mmol/L (137-145)
[2020-05-07] MEDS ORDERED: PANTOPRAZOLE 40 MG/10 ML VIAL IV SCH (09:00)
[2020-05-07] MEDS ORDERED: ENOXAPARIN 40 MG/0.4 ML SYRINGE SQ SCH (09:00)
--- NOTE | 2020-05-07 10:56 | P.PN ---
Progress Note - Text Progress Note Date: 05/07/20 Patient is doing well today. As I entered the room to evaluate the patient he was already dressed and about to leave. Tolerating diet. Reviewed discharge diet plans. Questions answered. Will follow up with Dr. Nuñez.
[2020-05-08] MEDS ORDERED: bisacodyL 5 MG TABLET.DR PO PRN (08:00)
== END 2020-05-07 09:41 | disposition home or self-care (01) ==
LOC: OR 05:47 → 4SSUR 09:13 → OR 05-07 03:41
PROVIDERS: ADMIT Surgery Plastic and Reconstructive Surgery; ATTEND Surgery Plastic and Reconstructive Surgery
DX: K44.0 Diaphragmatic hernia with obstruction, without gangrene (principal); K21.0 Gastro-esophageal reflux disease with esophagitis; F17.210 Nicotine dependence, cigarettes, uncomplicated; G47.33 Obstructive sleep apnea (adult) (pediatric); E66.09 Other obesity due to excess calories; Z68.33 Body mass index [BMI] 33.0-33.9, adult; Z88.0 Allergy status to penicillin; Z88.1 Allergy status to other antibiotic agents; Z87.442 Personal history of urinary calculi; Z90.49 Acquired absence of other specified parts of digestive tract; Z84.89 Family history of other specified conditions
CPT/HCPCS: 43282; S2900; 74210; 80051; 80053; 82310; 82565; 83735; 84100; 84520; 85025

== ENCOUNTER → 2023-07-04 | Outpatient (CLI) | payer OTHER ==
--- NOTE | 2023-07-05 08:49 | MR ---
EXAMINATION TYPE: MR hari/lsjoss wo con DATE OF EXAM: 07/04/2023 10:14 PM CLINICAL INDICATION:Male, 28 years old with history of S20.229D,S30.0XXD,M79.661;, Pt fell at work of f of a machine onto his back on 06/19/23 COMPARISON: CT 06/19/2023. TECHNIQUE: Multi planar, multi sequence imaging was performed utilizing: T1-weighted, T2-weighted, a nd turbo inversion recovery imaging of the thoracic and lumbar spine. IV Contrast: cc . None. FINDINGS: Alignment: The thoracic and lumbar vertebral bodies have preserved heights and alignment. Cord: The conus medullaris and the distal spinal cord appear unremarkable with regards to their signa l intensity and morphology. Bones/Discs: No abnormal bony signal inversion recovery sequences. Few scattered Schmorl's nodes and osteophytes with disc space narrowing is present. No abnormal bony inversion recovery signal. THORACIC: Left central disc osteophytes which minimally effaces the ventral subarachnoid space. No ev idence significant spinal canal or neural foraminal stenosis. Spinal cord is within normal limits. LUMBAR: T12-L1: No evidence of significant spinal canal stenosis or neural foraminal stenosis. L1-L2: No evidence of significant spinal canal stenosis or neural foraminal stenosis. L2-L3: No evidence of significant spinal canal stenosis or neural foraminal stenosis. L3-L4: No evidence of significant spinal canal stenosis or neural foraminal stenosis. L4-L5: No evidence of significant spinal canal stenosis or neural foraminal stenosis. L5-S1: No evidence of significant spinal canal stenosis or neural foraminal stenosis. Other findings: None. IMPRESSION: 1. No definitive evidence of disc herniation or significant spinal canal stenosis. The thoracic and lumbar spine appear with mild degeneration changes. No evidence of fracture. 2. 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
== END | disposition home or self-care (01) ==
LOC: RADMRIMAIN 20:45
PROVIDERS: ATTEND Emergency Medicine
DX: S20.229D Contusion of unspecified back wall of thorax, subsequent encounter (principal); S30.0XXD Contusion of lower back and pelvis, subsequent encounter; M79.661 Pain in right lower leg; M51.36 Other intervertebral disc degeneration, lumbar region; M51.34 Other intervertebral disc degeneration, thoracic region; M43.06 Spondylolysis, lumbar region; M43.04 Spondylolysis, thoracic region; W19.XXXD Unspecified fall, subsequent encounter
CPT/HCPCS: 72146; 72148

== ENCOUNTER 2024-03-24 06:20 | Emergency (ER) | payer OTHER ==
--- NOTE | 2024-03-24 06:35 | ED ---
Wound/Laceration HPI - General Chief Complaint: Wound/Laceration Stated Complaint: [facility] - Right Hand Laceration Time Seen by Provider: 03/24/24 06:29 Source: patient, RN notes reviewed Mode of arrival: ambulatory Limitations: no limitations - History of Present Illness Initial Comments: This is a 29-year-old male who presents to the emergency department for a laceration to his right index finger. 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 The hand and wound are both covered in grease and hydraulic fluid. Denies any substantial pain associated with this. Unsure when his last tetanus vaccine was. - Related Data Previous Rx's Medication Instructions Recorded Acetaminophen Tab [Tylenol Tab] 1,000 mg PO Q6HR PRN #30 tablet 05/06/20 Ibuprofen [Motrin] 600 mg PO Q8HR PRN #30 tab 05/06/20 Ibuprofen [Motrin] 600 mg PO Q8HR PRN #24 tab 06/19/23 Cephalexin [Keflex] 500 mg PO Q6HR 5 Days #20 cap 03/24/24 Allergies Allergy/AdvReac Type Severity Reaction Status Date / Time levofloxacin [From Levaquin] Allergy Rash/Hives Verified 03/24/24 06:28 amoxicillin [From Augmentin] AdvReac Vomiting Verified 03/24/24 06:28 clavulanic acid AdvReac Vomiting Verified 03/24/24 06:28 [From Augmentin] Review of Systems ROS Statement: Those systems with pertinent positive or pertinent negative responses have been documented in the HPI. ROS Other: All systems not noted in ROS Statement are negative. Past Medical History Past Medical History: GERD/Reflux, Sleep Apnea/CPAP/BIPAP Additional Past Medical History / Comment(s): no cpap used, hiatal hernia, hx kdiney stones History of Any Multi-Drug Resistant Organisms: None Reported Past Surgical History: Cholecystectomy Past Anesthesia/Blood Transfusion Reactions: Previous Problems w/ Anesthesia, Family History of Problems w/ Anesthesia Additional Past Anesthesia/Blood Transfusion Reaction / Comment(s): "lips turned blue and I stopped breathing" in recovery room after gallbladder surgery.05/2019 at [facility]-Went home same day,no respiratory intervention needed,I just had a hard time waking up." [email or web address]- hard to wake up Past Psychological History: Depression Smoking Status: Current every day smoker Past Alcohol Use History: Rare Past Drug Use History: None Reported - Past Family History Mother Family Medical History: No Reported History General Exam Limitations: no limitations General appearance: alert, in no apparent distress Head exam: Present: atraumatic, normocephalic, normal inspection Respiratory exam: Present: normal lung sounds bilaterally. Absent: respiratory distress, wheezes, rales, rhonchi, stridor Cardiovascular Exam: Present: regular rate, normal rhythm, normal heart sounds. Absent: systolic murmur, diastolic murmur, rubs, gallop, clicks Neurological exam: Present: alert, oriented X3, CN II-XII intact Psychiatric exam: Present: normal affect, normal mood Skin exam: Present: other (3 cm laceration to the right index finger. Minor active bleeding) Course Vital Signs 03/24/24 03/24/24 06:27 08:10 Temperature 98.3 F 98.1 F Pulse Rate 72 71 Respiratory 18 16 Rate Blood Pressure 134/82 129/87 O2 Sat by Pulse 96 98 Oximetry Procedures - Laceration Laceration #1 Consent Obtained: verbal consent Indication: laceration Site: hand Size (cm): 3 Description: linear Depth: simple, single layer Anesthetic Used: lidocaine 1% Anesthesia Technique: local infiltration Amount (mls): 3 Pre-repair: wound explored, irrigated extensively Type of Sutures: nylon Size of Sutures: 5-0 Number of Sutures: 4 Technique: simple, interrupted Medical Decision Making - Medical Decision Making This is a 29 year old male who presents to the emergency department for a laceration. Was pt. sent in by a medical professional or institution? @ -No Did you speak to anyone other than the patient for history? @ -No Did you review nursing and triage notes? @ -Yes, and I agree, it is accurate with regards to the patient's symptoms. Were old charts reviewed? @ -No Differential Diagnosis? @ -Differential Laceration: Laceration, abrasion, abscess, burn, insect bite, this is not meant to be an all-inclusive list. EKG interpreted by me (3pts min.)? @ -Not obtained X-rays interpreted by me (1pt min.)? @ -Not obtained CT interpreted by me (1pt min.)? @ -Not obtained U/S interpreted by me (1pt. min.)? @ -Not obtained What testing was considered but not performed? (CT, X-rays, U/S, labs)? Why? @ -None What meds were considered but not given? Why? @ -None Did you discuss the management of the patient with other professionals? @ -No Did you reconcile home meds? @ -No Was smoking cessation discussed for >3mins.? @ -I discussed smoking cessation for greater than 3 minutes. The risk of smoking were discussed with the patient including but not limited to risks of cancer, stroke, coronary artery disease and COPD. Also discussed with patient were multiple methods of quitting smoking. Lastly we discussed the financial cost of smoking. Was critical care preformed (if so, how long)? @ -No Were there social determinants of health that impacted care today? How? (Homelessness, low income, unemployed, alcoholism, drug addiction, transportation, low edu. Level, literacy, decrease access to med. care, shelter, rehab)? @ -No Was there de-escalation of care discussed even if they declined? (Discuss DNR or withdrawal of care, Hospice)? @ -No What co-morbidities impacted this encounter? (DM, HTN, Smoking, COPD, CAD, Cancer, CVA, Hep., AIDS, mental health diagnosis, sleep apnea, morbid obesity)? @ -Smoking Was patient admitted / discharged? @ -Discharge. Patient's hand was covered in large amounts of greasy and hydraulic fluid. A large amount of time was spent thoroughly cleaning his hand and the wound. There was a deeper laceration inside of superficial torn skin. The deeper laceration was repaired with sutures. Tetanus vaccine was updated. Given the dirty nature of this wound a prescription for Keflex was provided for infectious prophylaxis. Advised ibuprofen and Tylenol as needed for pain relief. He is also advised to return in 5 to 7 days for suture removal. Undiagnosed new problem with uncertain prognosis? @ -None Drug Therapy requiring intensive monitoring for toxicity (Heparin, Nitro, Insulin, Cardizem)? @ -None Were any procedures done? @ -Laceration repair with sutures Diagnosis/symptom? @ -Laceration Acute, or Chronic, or Acute on Chronic? @ -Acute Uncomplicated (without systemic symptoms) or Complicated (systemic symptoms)? @ -Uncomplicated Side effects of treatment? @ -None Exacerbation, Progression, or Severe Exacerbation] @ -Not applicable Poses a threat to life or bodily function? @ -No Return precautions reviewed in depth, the patient is instructed to return to the emergency department with any new, worsening, or concerning symptoms. Patient verbalized understanding. This case was discussed in detail with the attending ED physician, Dr. Hightower. Presentation, findings, and treatment plan discussed in detail as well. Disposition Clinical Impression: Nicotine dependence, Laceration Disposition: HOME SELF-CARE Instructions (If sedation given, give patient instructions): Care For Your Stitches (ED) Additional Instructions: Return to the emergency department with any new, worsening, or concerning symptoms and in 5-7 days for removal of the stitches. Take the antibiotic as prescribed for 5 days. Alternate with ibuprofen and Tylenol as needed for pain relief. Follow up with your primary care provider in 1-2 days. Prescriptions: Cephalexin [Keflex] 500 mg PO Q6HR 5 Days #20 cap Is patient prescribed a controlled substance at d/c from ED?: No Referrals: Harinder Jane MD [Primary Care Provider] - 1-2 days Time of Disposition: 07:48
[2024-03-24] MEDS: ONDANSETRON ODT 4 MG TAB PO STA (07:08)
[2024-03-24] MEDS: DIPH,PERTUS(ACELL)TETVAC-LF 0.5 ML VIAL IM ONE (07:08)
[2024-03-24] MEDS: LIDOCAINE 1% INJ 10MG/ML (20 ML MDV) SQ ONE (07:31)
[2024-03-24 08:12] VITALS: BP 129/87; PULSE 71; RESP 16; TEMP 98.1
== END 2024-03-24 08:10 | disposition home or self-care (01) ==
LOC: EC 06:20
DX: S61.210A Laceration without foreign body of right index finger without damage to nail, initial encounter (principal); F17.200 Nicotine dependence, unspecified, uncomplicated; Z88.0 Allergy status to penicillin; Z88.6 Allergy status to analgesic agent; Z88.8 Allergy status to other drugs, medicaments and biological substances; Z88.1 Allergy status to other antibiotic agents; Z23 Encounter for immunization; X58.XXXA Exposure to other specified factors, initial encounter; Y99.0 Civilian activity done for income or pay
CPT/HCPCS: 90715; 99282; 90471; 99406; 12002; J2001

== ENCOUNTER → 2024-03-30 | Outpatient (CLI) | payer OTHER ==
--- NOTE | 2024-03-30 11:56 | XR ---
EXAMINATION TYPE: XR hand complete RT DATE OF EXAM: 03/30/2024 COMPARISON: NONE HISTORY: 29-year-old male S61.200D, crushing injury to the right hand with laceration to the second d igit on 03/24/2024 TECHNIQUE: 3 views FINDINGS: Some dressing is been placed over the second finger. No retained radiopaque foreign body se en. No acute fracture, subluxation, dislocation. IMPRESSION: Some dressing over the index finger. No retained radiopaque foreign body or acute osseous abnormality seen.
== END | disposition home or self-care (01) ==
LOC: RADXRMAIN 11:08
PROVIDERS: ATTEND Emergency Medicine
DX: S61.200D Unspecified open wound of right index finger without damage to nail, subsequent encounter (principal)